=== PATIENT | male | born 1975 | race Caucasian/White ===

== ENCOUNTER 2017-06-27 10:44 | Observation (INO) | payer OTHER ==
[2017-06-18 16:16] VITALS: BMI 34.2
[~2017-06-27 10:44] MED LIST: DEXAMETHASONE SOD PHOSPHATE 10 MG/ML 1 ML VIAL IV ONE; MIDAZOLAM 2 MG/2 ML VIAL IV PRN; ONDANSETRON 4 MG/2 ML VIAL IVP ONE; SCOPOLAMINE 1.5MG/72HR PATCH TRANSDERM ONE; ceFAZolin 2 GM in SODIUM CHLORIDE 0.9% 100 ML IVPB ONE
[2017-06-27] MEDS ORDERED: LIDOCAINE 1% 20 ML VIAL (10MG/ML) FOR IV START INTRADERMA ONE (11:15)
[2017-06-27] MEDS: LACTATED RINGERS 1,000 ML IV SCH (11:15)
[2017-06-27] MEDS ORDERED: fentaNYL (PF) 50 MCG/ML 2 ML AMP IVP ONE (11:31)
--- NOTE | 2017-06-27 11:53 | P.ONQ ---
Anesthesiology Proc Note - PNB - Peripheral Nerve Block Performed Left Popliteal Single Time Out Performed: Yes Indication: Acute Post-Operative Pain, Analgesia Specifically requested for management of pain by DrVineet: Michael Arellano Sedation Type: Sedate with meaningful contact maintained Preparation: Sterile Prep Position: Supine (Right lateral) Catheter: None Needle Types: Other (see comment) (stimuplex) Needle Size: 50mm (2") Needle Gauge: Other (see comment) (22) Technique: Ultrasound Injectate: Other (see comment) (30 cc 1% lido,.025% Rop,) Adjunct: Epinephrine (see comment for dilution ratio) (1:200,000) Blood Aspirated: No Pain Paresthesia on Injection Noted: No Resistance on Injection: Normal Events: Uneventful and Well Tolerated
[2017-06-27] MEDS ORDERED: MIDAZOLAM 2 MG/2 ML VIAL ONE (12:45)
[2017-06-27] MEDS ORDERED: NEOSTIGMINE 1 MG/ML 10 ML VIAL ONE (12:45)
[2017-06-27] MEDS ORDERED: SUCCINYLCHOLINE CHLORIDE 100 MG/5 ML SYR IV ONE (12:45)
[2017-06-27] MEDS ORDERED: LIDOCAINE 1% INJ 10MG/ML (20 ML MDV) ONE (12:45)
[2017-06-27] MEDS ORDERED: fentaNYL (PF) 50 MCG/ML 2 ML AMP ONE (12:45)
[2017-06-27] MEDS ORDERED: GLYCOPYRROLATE 0.2 MG/ML 2 ML VIAL ONE (12:45)
[2017-06-27] MEDS ORDERED: ROCURONIUM BROMIDE 10 MG/ML 10 ML VIAL IV ONE (12:45)
[2017-06-27] MEDS ORDERED: PROPOFOL 10 MG/ML 20 ML VIAL IV ONE (12:45)
[2017-06-27] MEDS ORDERED: LACTATED RINGERS 1,000 ML IV ONE (15:00)
--- NOTE | 2017-06-27 15:15 | XR ---
EXAMINATION TYPE: XR calcaneus 2V LT DATE OF EXAM: 06/27/2017 COMPARISON: NONE HISTORY: Intraoperative image calcaneal fracture TECHNIQUE: One view submitted FINDINGS: Surgical change appears in near-anatomic alignment. There is some residual displacement of the posterior margin the calcaneus. IMPRESSION: Intraoperative image
--- NOTE | 2017-06-27 15:16 | FL ---
EXAMINATION TYPE: FL guidance operating room DATE OF EXAM: 06/27/2017 HISTORY: Flouroscopy time 51 seconds of fluoroscopy provided. IMPRESSION: 1. Fluoroscopy time.
[2017-06-27] MEDS: HYDROmorphone 1 MG/ML 1 ML SYRINGE IVP PRN ×4 (16:33→23:29)
[2017-06-27] MEDS ORDERED: HYDROmorphone 1 MG/ML 1 ML SYRINGE IVP PRN (16:49)
[2017-06-27] MEDS ORDERED: LACTATED RINGERS 1,000 ML IV SCH (17:00)
[2017-06-27] MEDS ORDERED: HYDROmorphone 2 MG/ML 1 ML SYRINGE IVP PRN (17:03)
--- NOTE | 2017-06-27 18:36 | P.OP ---
Date of Procedure: 06/27/17 Preoperative Diagnosis: 1. 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 Has pain over valgus foot deformity with less than 50% uncoverage of the talar head 3. Gastrocnemius equinus contracture 4. Anterior ankle impingement Postoperative Diagnosis: Same Procedure(s) Performed: 1. Left deltoid ligament reconstruction with tibialis anterior allograft 2. Left medializing calcaneal osteotomy 3. Left ankle cheilectomy 4. Left gastrocnemius recession 5. Application of left short leg splint Implants: Anesthesia: GETA Surgeon: Michael Arellano House Painting Instructor #1: Mina Mehta Estimated Blood Loss (ml): 25 IV fluids (ml): 1,600 Pathology: none sent Condition: stable Disposition: PACU Indications for Procedure: The patient is a 42-year-old male with a medical history significant for prior DVT and heart disease who is had a long-standing history of problems with his left foot and ankle. The patient has had multiple sprains resulting in chronic ankle pain. He failed a long course of nonsurgical treatment including activity modifications, bracing, orthotics, NSAID pain medication, and therapy. He came to see me to discuss surgery. 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 I discussed that the patient has a difficult problem in that he is artery developing arthritic changes in the ankle and has an incompetent deltoid ligament. The patient had x-rays and an MRI. The patient also obtained weightbearing x-rays of the ankle and foot as well as a stress x-ray in my office. The stress x-ray showed that the valgus ankle arthritis was passively correctable. I do lengthy discussion with the patient and his on treatment. We discussed continued nonsurgical treatment with custom bracing and orthotics as well as occasional injections and activity modification. The patient and his requested surgery. I discussed different treatment options including an ankle fusion versus joint sparing procedures. Due to the patient's young age and since his x-rays were passively correctable on stress x-ray we discussed performing joint sparing procedures. My recommendation was to perform a deltoid ligament reconstruction with tendon allograft, a medializing calcaneal osteotomy to correct his hindfoot valgus and protect his graft, and ankle cheilectomy to address his ankle impingement and a gastrocnemius recession. We discussed the potential risks and complication of surgery including but not limited to risk of anesthesia, risk of superficial infection, risk of deep infection, risk of delayed wound healing, risk of damage to local blood vessels or nerves, risk of failure of the graft, risk of recurrent valgus deformity, risk of progression of arthritis, risk of continued pain, risk of worsening pain, risk of inability to regain preinjury level of function, risk of nonunion of the calcaneal osteotomy, risk of symptomatically hardware from the osteotomy, risk of damage to the sural nerve, risk of calf atrophy, generalized to satisfaction with surgery, DVT, fatal PE, postoperative medical complications, need for further surgery, amputation, and possibly . The patient and his understand that he is at a high risk of having ongoing pain due to his degenerative ankle findings. They provided their verbal and written consent and requested I go forward with surgery. Operative Findings: Description of Procedure: The patient was identified in preoperative holding and the correct left leg was marked with my initials. I reviewed the consent form with the patient and his . All of their questions were answered. A preoperative popliteal and saphenous nerve block was applied by anesthesia. The patient was then brought back to the operating room. He was positioned on an operating room table and a general anesthetic and preoperative antibiotics were administered. A tourniquet was applied to the proximal aspect of his left thigh. All bony prominences were well-padded. A bone foam bump was placed under his left buttock internally rotating his leg to neutral. A ramp was placed under the left leg. The right leg was secured to the operating room table with foam and tape. The left leg was then prepped and draped in the standard sterile fashion. Prior to starting surgery timeout was performed identifying the correct patient, operative extremity, and procedure. The patient's leg was then elevated, exsanguinated with an Esmarch bandage, and the tourniquet was inflated to 250 mmHg. Next I began by performing a gastrocnemius recession. I made a longitudinal incision 1 thumb breath posterior to the medial tibia at the distal medial muscle belly of the gastrocnemius. Skin incision was made a 10 blade scalpel and dissection was carried down carefully to the subcutaneous tissue to the superficial fascia which was incised longitudinally in line with the skin incision. I bluntly developed the interval between the gastrocnemius aponeurosis and superficial fascia as well as the gastroc aponeurosis and soleus fascia. The sural nerve was identified to be adherent to the superficial fascia. The plantaris tendon was identified and a 1 cm section was removed. Modified right angle retractors were placed isolating the gastrocnemius aponeurosis. I major that the sural nerve was protected. I then transected the aponeurosis from medial to lateral under direct visualization. The wound was then copiously irrigated. The deep subcu was reapproximated using 2-0 Vicryl. The skin was closed with 3-0 nylon horizontal mattress stitches. I then performed a medializing calcaneal osteotomy. An oblique incision was marked out 1 thumb breadth posterior to the fibula over the lateral wall the calcaneus. Skin incision with a 15 blade scalpel dissection was carried down carefully with tenotomy scissors to the periosteum over the lateral calcaneus. A munoz elevator was used to raise the soft tissue off the calcaneus. Baby Berenice retractors were placed superior and inferior to the calcaneus. A long microsagittal saw blade was used to cut the calcaneus taking care not to plunge medially. A small lamina survey operations director was placed in the osteotomy to relax the soft tissues medially. I then placed K wires for cannulated 45 screws in the tuberosity of the calcaneus up to the osteotomy site. I verified the position of the K wires. I then applied a medial force to the calcaneus and had an election assistant drive the K wires across the osteotomy site. An axial view was then obtained again showing medialization of the tuberosity and that the K wires were within bone. I then measured and placed cannulated, partially-threaded, 4.5 mm screws across the osteotomy site generating excellent compression. I verified the position of the screws with both a an axial and lateral x-ray. I then marked a longitudinal incision centered over the medial malleolus and extending along the medial border of the foot. Skin incision was made a 15 blade scalpel. I dissected through the subcu changes tissue and elevated the periosteum off of the distal tibia. I then proceeded my dissection distally. The sheath of the posterior tibial tendon was opened. On inspection the posterior tibial tendon appeared to be relatively normal with minimal degenerative changes and no tearing. I elected not to perform an FDL tendon transfer. The posterior tibial tendon was then carefully retracted. An anterior arthrotomy the ankle joint was then performed. There appeared to be a large overhanging anterior plafond osteophyte as well as an osteophyte on the medial talar neck. An osteotome was reduced to remove the impinging spurs. Both the superficial and deep limbs of the deltoid ligament appeared to be attenuated. My election assistant prepared the tibialis anterior tendon on the back table and placed it in a graft workstation to provide tension to the graft and help prevent postoperative creep of the tendon. A K wire was then placed at the level of the physeal scar on the AP view and directly centered in the tibia on the lateral view. A beath pin was then placed in the talus at the center of rotation of the ankle joint from medial to lateral and out the lateral skin. A second Beath pin was placed in the calcaneus from the sustentaculum out the lateral aspect of the calcaneus into the skin. The graft was then brought to the operating room table from the back table. One end of the graft was placed into the tibia and a 6.25 mm interference screw was placed into the graft holding it into the tibia. The graft appeared secure and I was not able to dislodge it from the tibia. I then placed one of the limbs of the graft through the Beath pin and pulled the Beath pin laterally bringing the graft down into the talar bone tunnel after drilling a tunnel for the graft. The foot was placed in maximum inversion and a 5.5 mm interference screw was placed holding the graft in place nicely. Attention was then turned to the calcaneal tunnel. The Beath pin was pulled through the lateral foot, pulling the other limb of the graft into the calcaneal tunnel. Fluoroscopy was brought in to verify reduction of the valgus tilt. Maximum inversion was held and a 5.5 mm interference screw was placed in the calcaneal tunnel holding the graft in place. At this point fluoroscopy was brought in. On a mortise view the talus appeared to be concentrically reduced within the ankle with no evidence of valgus tilt. I applied gentle stress to the tendon and there did not appear to be any valgus instability. I also performed varus stressing and there did not appear to be any varus stress. At this point all wounds were copiously irrigated. The sheath of the posterior tibial tendon was closed with a running 0 Vicryl stitch. The subcutaneous layer of all incisions were closed with interrupted 2-0 Vicryl. Skin of all incisions were closed using 3-0 nylon horizontal mattress stitches. The stab incisions on the plantar aspect of the heel were closed with interrupted 3-0 nylon. A sterile dressing consisting of Betadine soaked Adaptic, 4 x 4, and web roll was applied. The drapes were taken down and a very well-padded bulky Villarreal type splint was applied. The patient was then awoken from his anesthetic, transferred to the operative table to the [facility] and brought to PACU having tolerated the procedure well. Mina BOB was required as a skilled election assistant for patient positioning, approach, preparation of the graft, placement of the graft, closure, and application of splint. Plan: The patient is going to be admitted overnight for pain control and postoperative antibiotics due to the fact that he lives over 2 hours away. He is to remain strictly nonweightbearing on his left leg in his splint at all times. Due to the patient having a history of prior DVT he is going to be treated with Lovenox. 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 He will follow-up in the office in 2 weeks for splint and suture removal and x-rays of the left ankle including an axial heel view.
[2017-06-27] MEDS ORDERED: ALBUTEROL NEBULIZED 2.5 MG/3 ML INHALATION PRN (20:36)
[2017-06-27] MEDS: HYDROcodone/APAP 10-325MG 1 EACH TAB PO PRN (22:38)
[2017-06-28] MEDS: HYDROmorphone 1 MG/ML 1 ML SYRINGE IVP PRN ×2 (02:32→05:31)
[2017-06-28] MEDS: HYDROcodone/APAP 10-325MG 1 EACH TAB PO PRN ×2 (03:26→07:22)
[2017-06-28 03:53] VITALS: TEMP 98
[2017-06-28] MEDS: LACTATED RINGERS 1,000 ML IV SCH (05:04)
[2017-06-28 06:01] VITALS: RESP 16
[2017-06-28 07:06] VITALS: BP 120/65; PULSE 101
[2017-06-28] MEDS ORDERED: PANTOPRAZOLE 40 MG TABLET PO SCH (07:30)
--- NOTE | 2017-06-28 08:37 | P.DS ---
Providers Date of admission: 06/28/17 06:42 Attending physician: Michael Arellano Consults: 06/27/17 20:38 Consult Physician Routine Consulting Provider: Carlos A Felton Consult Reason/Comments: medical management Do you want consulting provider notified?: Yes, Notify in am Primary care physician: Spencer Cuba MD Hospital Course: The patient is a very pleasant 42-year-old male who underwent a left foot deltoid ligament reconstruction, left ankle cheilectomy, left medializing calcaneal osteotomy and left gastrocnemius recession on 06/27/2017. Following an uncomplicated surgery the patient was transferred to the orthopedic floor overnight for pain control. On postoperative day #1 his only complaint is pain in the left ankle and heel. He denies chest pain or shortness of breath. On exam he had a clean-appearing bulky Villarreal splint with no saturated bleeding. His toes were warm and well perfused with brisk capillary refill. His pain medication was increased to Percocet and he was cleared for discharge home. Plan - Discharge Summary New Discharge Prescriptions: New Docusate [Colace] 100 mg PO BID #60 capsule HYDROcodone/APAP 10-325MG [Graham 10-325] 1 tab PO Q4HR PRN #60 tab PRN Reason: Pain Enoxaparin [Lovenox] 40 mg SQ DAILY #14 syringe oxyCODONE HCL/ACETAMINOPHEN [Percocet 10-325 mg] 1 tab PO Q4HR PRN #75 tab PRN Reason: Pain No Action Pravastatin Sodium [Pravachol] 20 mg PO DAILY Aspirin [Adult Low Dose Aspirin EC] 81 mg PO DAILY Metoprolol Tartrate [Lopressor] 25 mg PO DAILY Pantoprazole Sodium [Protonix] 20 mg PO DAILY Discharge Medication List Aspirin [Adult Low Dose Aspirin EC] 81 mg PO DAILY 06/18/17 [History] Metoprolol Tartrate [Lopressor] 25 mg PO DAILY 06/18/17 [History] Pantoprazole Sodium [Protonix] 20 mg PO DAILY 06/18/17 [History] Pravastatin Sodium [Pravachol] 20 mg PO DAILY 06/18/17 [History] Docusate [Colace] 100 mg PO BID #60 capsule 06/27/17 [Rx] Enoxaparin [Lovenox] 40 mg SQ DAILY #14 syringe 06/27/17 [Rx] HYDROcodone/APAP 10-325MG [Graham 10-325] 1 tab PO Q4HR PRN #60 tab 06/27/17 [Rx] oxyCODONE HCL/ACETAMINOPHEN [Percocet 10-325 mg] 1 tab PO Q4HR PRN #75 tab 06/28 [Rx] Follow up Appointment(s)/Referral(s): Michael Arellano MD [Medical Doctor] - 2 Weeks Activity/Diet/Wound Care/Special Instructions: Take meds as directed F/U with Dr. Arellano Maintain splint, keep clean and dry Non weightbearing, left leg
[2017-06-28] MEDS: oxyCODONE-APAP 10-325MG 1 EACH TAB PO PRN ×2 (08:45→12:23)
[2017-06-28] MEDS ORDERED: ASPIRIN 81 MG CHEW PO SCH (09:00)
[2017-06-28] MEDS ORDERED: METOPROLOL TARTRATE 25 MG TAB PO SCH (09:00)
--- NOTE | 2017-06-28 13:45 | P.CONS ---
History of Present Illness - Reason for Consult Consult date: 06/28/17 Requesting physician: Michael Arellano - History of Present Illness I came to see the patient the consults . In the meantime patient is already discharged from the floor. I did not get to see the patient. Past Medical History Past Medical History: GERD/Reflux, Hyperlipidemia, Myocardial Infarction (MT) Additional Past Medical History / Comment(s): wears lt ankle brace Last Myocardial Infarction Date:: 2015 History of Any Multi-Drug Resistant Organisms: None Reported Past Surgical History: Heart Catheterization, Orthopedic Surgery Additional Past Surgical History / Comment(s): rt knee:ACL,MCL meniscus repair. Past Anesthesia/Blood Transfusion Reactions: Family History of Problems w/ Anesthesia Additional Past Anesthesia/Blood Transfusion Reaction / Comm: states mother experienced anyphlactic shock after anesthesia Past Psychological History: No Psychological Hx Reported Smoking Status: Former smoker Past Alcohol Use History: Rare Additional Past Alcohol Use History / Comment(s): smoker 10-12 years 1/2ppd quit 2015 Past Drug Use History: None Reported - Past Family History Mother Additional Family Medical History / Comment(s): hx "blood clots in her groin and stomach" Medications and Allergies Home Medications Medication Instructions Recorded Confirmed Type Aspirin [Adult Low Dose Aspirin EC] 81 mg PO Q48H 06/18/17 06/28/17 History Metoprolol Tartrate [Lopressor] 12.5 mg PO BID 06/18/17 06/28/17 History Pantoprazole Sodium [Protonix] 20 mg PO DAILY 06/18/17 06/28/17 History Pravastatin Sodium [Pravachol] 20 mg PO DAILY 06/18/17 06/28/17 History Docusate [Colace] 100 mg PO BID #60 capsule 06/27/17 Rx Enoxaparin [Lovenox] 40 mg SQ DAILY #14 syringe 06/27/17 Rx Albuterol Inhaler [Ventolin Hfa 2 puff INHALATION RT-QID PRN 06/28/17 06/28/17 History Inhaler] oxyCODONE HCL/ACETAMINOPHEN 1 tab PO Q4HR PRN #75 tab 06/28/17 Rx [Percocet 10-325 mg] Allergies Allergy/AdvReac Type Severity Reaction Status Date / Time No Known Allergies Allergy Verified 06/18/17 15:39 Physical Exam Vitals: Vital Signs Temp Pulse Pulse Pulse Pulse Resp BP 06/28/17 07:00 98 F 101 H 16 120/65 06/28/17 04:00 16 06/28/17 03:52 98 F 94 17 129/63 06/28/17 00:00 16 06/27/17 22:29 80 06/27/17 22:22 84 06/27/17 20:27 16 134/86 06/27/17 20:00 16 06/27/17 19:30 92 16 128/80 06/27/17 19:15 81 16 122/77 06/27/17 19:00 85 16 122/74 06/27/17 18:45 96 16 122/75 06/27/17 18:30 71 16 123/77 06/27/17 18:15 16 124/79 06/27/17 18:00 85 16 123/76 06/27/17 17:30 98.2 F 92 16 125/78 06/27/17 16:58 82 16 136/86 06/27/17 16:42 91 16 143/87 06/27/17 16:27 84 16 142/82 06/27/17 16:12 83 16 141/78 06/27/17 15:57 77 16 146/80 06/27/17 15:42 98.9 F 93 14 141/79 Pulse Ox 06/28/17 07:00 94 L 06/28/17 04:00 06/28/17 03:52 94 L 06/28/17 00:00 06/27/17 22:29 06/27/17 22:22 06/27/17 20:27 94 L 06/27/17 20:00 06/27/17 19:30 97 06/27/17 19:15 95 06/27/17 19:00 96 06/27/17 18:45 93 L 06/27/17 18:30 93 L 06/27/17 18:15 90 L 06/27/17 18:00 92 L 06/27/17 17:30 94 L 06/27/17 16:58 92 L 06/27/17 16:42 94 L 06/27/17 16:27 94 L 06/27/17 16:12 99 06/27/17 15:57 98 06/27/17 15:42 98 Intake and Output 06/27/17 06/28/1717 22:59 06:59 14:59 Intake Total 1800 600 180 Output Total 754 718 3076 Balance 1200 150 -1200 Intake: IV 700 400 Lactated Ringers 1,000 ml 400 @ 50 mls/hr IV .Q20H [facility] Rx#:[id number] Oral 1100 200 180 Output: Urine [id number] Other: Voiding Method Urinal Toilet Weight 117.48 kg
[2017-06-28] MEDS ORDERED: PRAVASTATIN SODIUM 20 MG TAB PO SCH (21:00)
== END 2017-06-28 13:05 | disposition home or self-care (01) ==
LOC: OR 10:44 → 3SUR 15:27 → OR 06-28 06:42 → 3SUR 06-28 06:42
PROVIDERS: ADMIT Orthopaedic Surgery; ATTEND Orthopaedic Surgery
DX: M21.072 Valgus deformity, not elsewhere classified, left ankle (principal); M25.872 Other specified joint disorders, left ankle and foot; M24.572 Contracture, left ankle; G89.29 Other chronic pain; I10 Essential (primary) hypertension; E78.5 Hyperlipidemia, unspecified; M19.072 Primary osteoarthritis, left ankle and foot; G47.33 Obstructive sleep apnea (adult) (pediatric); Z86.718 Personal history of other venous thrombosis and embolism; Z87.891 Personal history of nicotine dependence; Z82.49 Family history of ischemic heart disease and other diseases of the circulatory system; I25.2 Old myocardial infarction; I25.10 Atherosclerotic heart disease of native coronary artery without angina pectoris; Z91.14 Patient's other noncompliance with medication regimen; Z79.899 Other long term (current) drug therapy; E66.9 Obesity, unspecified; Z68.34 Body mass index [BMI] 34.0-34.9, adult
CPT/HCPCS: 27687; 28300; 27695; 64450; 94640; 73650; G0378; C1713; C1762; J2250; J1100; J0690; J2405; J3010; J1170 ×2

== ENCOUNTER 2018-01-09 10:09 | Day surgery (SDC) | payer OTHER ==
[2018-01-06 10:54] VITALS: BMI 34.5
[~2018-01-09 10:09] MED LIST changes: +LACTATED RINGERS 1,000 ML IV SCH; +LIDOCAINE 1% 20 ML VIAL (10MG/ML) FOR IV START INTRADERMA PRN; +MORPHINE SULFATE 4 MG/ML SYRINGE IV PRN; -ceFAZolin 2 GM in SODIUM CHLORIDE 0.9% 100 ML IVPB ONE; +ceFAZolin IN SWFI 2 GM/20 ML SYRINGE IVP ONE
[2018-01-09] MEDS ORDERED: fentaNYL (PF) 50 MCG/ML 2 ML AMP ONE ×2 (12:05→12:33)
[2018-01-09] MEDS ORDERED: fentaNYL (PF) 50 MCG/ML 2 ML AMP IV ONE (12:15)
[2018-01-09] MEDS ORDERED: MIDAZOLAM 2 MG/2 ML VIAL IV ONE (12:15)
[2018-01-09] MEDS ORDERED: ROPIVACAINE 5 MG/ML 30 ML VIAL ONE (12:33)
[2018-01-09] MEDS ORDERED: PROPOFOL 10 MG/ML 20 ML VIAL IV ONE (12:33)
[2018-01-09] MEDS ORDERED: SUCCINYLCHOLINE CHLORIDE VIAL 200 MG/10 ML VIAL IV ONE (12:33)
[2018-01-09] MEDS ORDERED: LIDOCAINE 1% INJ 10MG/ML (20 ML MDV) ONE (12:33)
[2018-01-09] MEDS ORDERED: MIDAZOLAM 2 MG/2 ML VIAL ONE (12:33)
[2018-01-09] MEDS ORDERED: PHENYLEPHRINE-0.9% NACL SYG 1 MG/10 ML SYRINGE ONE (12:33)
[2018-01-09] MEDS ORDERED: LIDOCAINE 2%-EPI 1:100,000 20 ML VIAL ONE (12:33)
[2018-01-09] MEDS ORDERED: ePHEDrine SULFATE/0.9% NACL/PF 50 MG/5 ML SYRINGE IV ONE (12:33)
--- NOTE | 2018-01-09 13:04 | P.ONQ ---
Anesthesiology Proc Note - PNB - Peripheral Nerve Block Performed Left Popliteal Single Time Out Performed: Yes Procedure Start Time: 12:15 Indication: Acute Post-Operative Pain, Analgesia Specifically requested for management of pain by DrVineet: Michael Arellano Sedation Type: Sedate with meaningful contact maintained Preparation: Sterile Prep Position: Supine (Right Lateral) Catheter: None Needle Types: Other (see comment) (pajunk) Needle Size: 50mm (2") Needle Gauge: 21 Technique: Ultrasound Injectate: 0.5% Ropivacaine (see comment for volume) (30) Blood Aspirated: No Pain Paresthesia on Injection Noted: No Resistance on Injection: Normal Events: Uneventful and Well Tolerated
[2018-01-09] MEDS ORDERED: LACTATED RINGERS 1,000 ML IV ONE (14:02)
--- NOTE | 2018-01-09 14:36 | P.OP ---
Date of Procedure: 01/09/18 Preoperative Diagnosis: 1. Left ankle peroneal tendon dislocation Postoperative Diagnosis: 1. Left peroneal tendon dislocation 2. Left peroneus longus tendon tear 3. Left low-lying peroneus brevis muscle belly 4. Left ankle arthritis Procedure(s) Performed: 1. Repair of SPR for dislocating peroneal tendons 2. Repair of peroneus longus tear 3. Excision of low-lying peroneus brevis muscle belly Anesthesia: GETA Surgeon: Michael Arellano Dog Bather #1: Mina Mehta Estimated Blood Loss (ml): 10 IV fluids (ml): 700 Pathology: none sent Condition: stable Disposition: PACU Indications for Procedure: The patient is a very pleasant 42-year-old male who is well-known to my practice. The patient has had a long-standing history of problems with his left ankle. He previously underwent a left gastroc recession, deltoid ligament reconstruction, and medializing calcaneal osteotomy for valgus ankle arthritis. He had some recurrence of his deformity but otherwise healed and was doing well from that surgery. He went on to develop pain along the lateral border of his leg. He also developed an uncomfortable popping sensation over his lateral malleolus. Clinically his peroneal tendons were subluxed out of the peroneal groove. He initially was managed with physical therapy and ankle bracing. He got to the point that he failed to improve with nonsurgical treatment. I do lengthy discussion with the patient and his on treatment options. The patient requested surgery. The patient acknowledged and understands that he has arthritis and deformity in the ankle. I was initially hesitant to perform an isolated peroneal tendon repair in light of the patient's arthritis, but the patient was adamant that he wanted elective peroneal tendon surgery. The patient's physical therapy office and agreed that most of the symptoms were treatable to his peroneal tendons subluxing and causing discomfort over the lateral malleolus. I agreed to perform an isolated peroneal tendon repair and the patient acknowledged the fact that he may still have discomfort and disability due to his underlying ankle arthritis. We discussed the potential risks and complication of surgery including but not limited to risk of anesthesia, superficial infection, deep infection, damage to local blood vessels or nerves, intraoperative fracture, postoperative fracture, recurrent instability, ongoing pain, chronic swelling, inability to regain preinjury level of function, generalized to satisfaction with surgery, DVT, PE, other medical complications and possibly loss of life or limb. The patient acknowledged and understands that he may still have pain due to his arthritis and provided his consent to go forward with an isolated peroneal tendon repair. Operative Findings: Both the peroneus longus and brevis were dislocated out of the retro-fibular groove. The superior peroneal retinaculum was partially torn off the fibula and there was a pouch over the lateral malleolus. There is a longitudinal tear in the peroneus longus and a low-lying muscle belly of the peroneus brevis. The retro-fibular groove was concave and did not require a groove deepening. Description of Procedure: The patient was identified Holding and the correct left leg was marked with my initials. I reviewed the consent form with the patient and his and all the questions were answered. Popliteal nerve block was placed. The patient was then brought back to the operating room by anesthesia. He was positioned on the OR table where general anesthetic and preoperative antibiotics were administered. A tourniquet was applied to the proximal aspect of the left leg. The right leg was secured to the table with foam and tape. A bump was placed on the left buttock. A ramp was placed under the left leg. The left leg was then prepped and draped in the standard sterile fashion. Prior to starting surgery timeout was performed identifying the correct patient, operative extremity, and procedure. The patient's leg was then elevated, exsanguinated with an Esmarch bandage, the tourniquet was inflated to 250 mmHg. Incision over the distal fibula, directly over the fibula proximally and angled 45 distally at the tip of the fibula. Skin incision was made with a 15 blade scalpel. Dissection was carried down carefully to subcutaneous tissue with tenotomy scissors. The peroneal tendon sheath was identified and incised, leaving a small cuff of tissue on the fibula. The superior peroneal retinaculum and periosteum was elevated off of the fibula and there was a pouch directly over the lateral malleolus. Both the peroneus longus and brevis were dislocated into this potential space. The synovial lining of this potential space was debrided and the periosteum and retinaculum was elevated off the remainder of the distal fibula. There was a longitudinal tear in the peroneus longus. The degenerative fibers of the peroneus longus were debrided sharply. After debriding the tear there was greater than 50% of the diameter remaining. The remaining fibers the peroneus longus were tubularized. There is also a low- lying peroneus brevis which was sharply debrided. Inflamed adventitial tissue within the retro-fibular groove was excised. The retro-fibular groove was found to be concave so a groove deepening was not needed. The lateral malleolus was roughened with a rasp. Drill holes were made in the lateral malleolus to repair the retinaculum to. A 2 mm x 4 mm graft jacket was then used to help augment the retinacular tissue. #2 FiberWire was placed through the drill holes, grasping the retinaculum and graft jacket and then passed back through the bone tunnels. 2 limbs of suture were passed in this manner and then tied over the bone bridge, nicely re-creating the retinaculum. The periosteal layer that had been raised over the fibula was then brought back to bone through a drill tunnel using 2-0 FiberWire. The remaining redundant tissue was used to reinforce the peroneal retinacular repair. After the repair had been completed both tendons were within the groove. I was unable to dislocate the tendons manually with a [place] elevator. The leg was brought through range of motion and I was unable to dislocate the peroneal tendons. The wound was copiously irrigated. The remaining retinacular tissue was closed with a running 0 Vicryl. The deep subcu was reapproximated using 2-0 Vicryl. The skin was closed using simon. I verified that all instrument, sponge, and sharp counts were correct. The patient had a sterile dressing consisting of Adaptic, 4 x 4, and web roll. The drapes were taken down and well-padded bulky Villarreal splint was placed. The patient was awoken from his anesthetic, transferred to a gurney and brought to PACU without procedure well. Mina Mehta PA-C was required is a skilled licensed investment sales assistant for patient positioning, surgical exposure, closure of wound, and application of splint. Next Plan the patient is going to be discharged home as an outpatient. He is to remain strictly nonweightbearing on his left leg. He is to leave his splint on at all times. Due to his cardiac history will be discharged home on a one-week course of Lovenox.
[2018-01-09 14:37] VITALS: TEMP 97.2
[2018-01-09 15:05] VITALS: RESP 16
[2018-01-09] MEDS ORDERED: ONDANSETRON 4 MG/2 ML VIAL IVP ONE (15:59)
[2018-01-09 16:25] VITALS: BP 131/79; PULSE 89
--- NOTE | 2018-01-11 14:55 | FL ---
EXAMINATION TYPE: FL guidance operating room DATE OF EXAM: 01/09/2018 CLINICAL HISTORY: Left ankle pain TECHNIQUE: Fluoroscopy documentation. COMPARISON: Limited left ankle radiograph of the same date. FINDINGS/IMPRESSION: Fluoroscopic guidance was provided during procedure performed by Dr. Arellano. A total of 3 seconds of fluoroscopic time was utilized during the procedure and1 spot images was acq uired on the limited left ankle radiograph of the same date.
== END 2018-01-09 16:38 | disposition home or self-care (01) ==
LOC: OR 10:09
PROVIDERS: ATTEND Orthopaedic Surgery
DX: M67.874 Other specified disorders of tendon, left ankle and foot (principal); S86.312A Strain of muscle(s) and tendon(s) of peroneal muscle group at lower leg level, left leg, initial encounter; X58.XXXA Exposure to other specified factors, initial encounter; M19.072 Primary osteoarthritis, left ankle and foot; M21.962 Unspecified acquired deformity of left lower leg; Z98.890 Other specified postprocedural states; I11.9 Hypertensive heart disease without heart failure; E78.5 Hyperlipidemia, unspecified; G47.33 Obstructive sleep apnea (adult) (pediatric); K21.9 Gastro-esophageal reflux disease without esophagitis; Z86.718 Personal history of other venous thrombosis and embolism; I25.2 Old myocardial infarction; Z79.891 Long term (current) use of opiate analgesic; Z79.899 Other long term (current) drug therapy; Z79.82 Long term (current) use of aspirin; Z87.891 Personal history of nicotine dependence
CPT/HCPCS: 93005; 73600; 27675; C1713; J2250; J0330; J1100; J2405; J2001; J3010; J2795; J2370; J2704; J0690